=== PATIENT | female | born 1945 | race Caucasian/White ===

== ENCOUNTER 2019-01-27 10:43 | Emergency (ER) | payer OTHER, MEDICAID ==
[2019-01-27] MEDS: predniSONE 20 MG TAB PO (12:41)
[2019-01-27] MEDS ORDERED: predniSONE 20 MG TAB PO (13:00)
== END 2019-01-27 13:33 | disposition home or self-care (01) ==
LOC: FTE 10:43
DX: R05 Cough (principal); I10 Essential (primary) hypertension; J45.909 Unspecified asthma, uncomplicated
CPT/HCPCS: 99283